=== PATIENT | male | born 1985 | race Caucasian/White ===

== ENCOUNTER 2021-03-17 08:22 | Emergency (ER) | payer OTHER ==
[2021-03-17] MEDS ORDERED: IBUPROFEN 600 MG TABLET (FP) PO ONE ×2 (08:38→08:42)
[2021-03-17 08:39] VITALS: BP 115/73; PULSE 96; TEMP 98; BMI 31.0
== END 2021-03-17 08:53 | disposition home or self-care (01) ==
LOC: FER 08:22
DX: M25.561 Pain in right knee (principal); M25.562 Pain in left knee; Y93.02 Activity, running
CPT/HCPCS: 99283-25

== ENCOUNTER 2021-05-07 01:26 | Emergency (ER) | payer BC, OTHER ==
[2021-05-07 02:00] VITALS: BP 145/88; PULSE 87; TEMP 99.4; BMI 30.5
[2021-05-07 02:34] LABS: EOS % 3.3 % (0-4.5); HEMOGLOBIN 15.4 GM/dL (11.7-16.9); LYMPH % 37.3 % (8-40); MCH 29.8 pg (25.7-33.7); MCHC 35.1 g/dl (32.0-35.9); MEAN PLT VOLUME 10.7 fl (7.5-11.1); MONO % 9.4 % (3.8-10.2); PLATELET COUNT 166 10^3/uL (134-434); RBC 5.18 M/mm3 (4.00-5.60); RDW 12.5 % (11.9-15.9); WHITE BLOOD COUNT 5.2 K/mm3 (4.0-10.0)
[2021-05-07 02:52] LABS: CHLORIDE 104 mmol/L (98-107); SODIUM 138 mmol/L (136-145)
[2021-05-07 02:54] LABS: CALCIUM 8.5 mg/dL (8.5-10.1)
[2021-05-07 02:55] LABS: ALBUMIN 3.7 g/dl (3.4-5.0); ANION GAP 8 MMOL/L (8-16); BLOOD UREA NITROGEN 10.5 mg/dL (7-18); CO2 25 mmol/L (21-32); GLUCOSE,RANDOM 134 mg/dL (74-106)
[2021-05-07 02:58] LABS: CREATININE 0.9 mg/dL (0.55-1.3); SGOT/AST 19 U/L (15-37); SGPT/ALT 54 U/L (13-61)
[2021-05-07 03:00] LABS: BILIRUBIN,TOTAL 0.8 mg/dL (0.2-1); TOT PROT 7.9 g/dl (6.4-8.2)
[2021-05-07 03:01] LABS: ALK PHOS 103 U/L (45-117)
[2021-05-07] MEDS ORDERED: POTASSIUM CHLORIDE TABS 20 MEQ TABLET.ER (FP) PO ONE ×2 (03:17→03:22)
== END 2021-05-07 04:24 | disposition home or self-care (01) ==
LOC: JER 01:26
DX: U07.1 COVID-19 (principal); R06.02 Shortness of breath
CPT/HCPCS: 36415; 71046-TC-FY; 80053; 82550; 84484; 85025; 85379; 93005; 93010; 99285-25

== ENCOUNTER 2022-03-27 18:49 | Emergency (ER) | payer OTHER ==
[2022-03-27 19:08] VITALS: BP 132/92; PULSE 95; RESP 20; TEMP 98; BMI 30.5
== END 2022-03-27 19:45 | disposition home or self-care (01) ==
LOC: FER 18:49
DX: Z77.29 Contact with and (suspected) exposure to other hazardous substances (principal)
CPT/HCPCS: 99281-25

== ENCOUNTER 2022-11-27 08:25 | Emergency (ER) | payer OTHER, BC ==
[2022-11-27 08:40] VITALS: BP 135/81; PULSE 93; RESP 18; TEMP 98.5
[2022-11-27 08:45] VITALS: BMI 31.1
== END 2022-11-27 09:59 | disposition home or self-care (01) ==
LOC: FER 08:25
DX: T59.811A Toxic effect of smoke, accidental (unintentional), initial encounter (principal); X08.8XXA Exposure to other specified smoke, fire and flames, initial encounter; Y35.91XA Legal intervention, means unspecified, law enforcement official injured, initial encounter
CPT/HCPCS: 99282-25

== ENCOUNTER 2023-04-09 00:53 | Emergency (ER) | payer OTHER, BC ==
[2023-04-09 01:06] VITALS: BP 135/94; PULSE 103; RESP 18; TEMP 98.2; BMI 31.1
== END 2023-04-09 02:16 | disposition home or self-care (01) ==
LOC: FER 00:53
DX: S61.211A Laceration without foreign body of left index finger without damage to nail, initial encounter (principal); S63.92XA Sprain of unspecified part of left wrist and hand, initial encounter; V43.52XA Car driver injured in collision with other type car in traffic accident, initial encounter
CPT/HCPCS: 73130-TC-LT-FY; 99283-25

== ENCOUNTER 2024-01-25 03:51 | Emergency (ER) | payer OTHER ==
[2024-01-25 03:58] VITALS: BP 137/92; PULSE 93; RESP 18; TEMP 97.7; BMI 31.9
== END 2024-01-25 04:08 | disposition home or self-care (01) ==
LOC: FER 03:51
DX: M25.561 Pain in right knee (principal); M25.562 Pain in left knee
CPT/HCPCS: 99282-25

== ENCOUNTER 2024-03-02 04:22 | Emergency (ER) | payer OTHER ==
[2024-03-02] MEDS ORDERED: IBUPROFEN 600 MG TABLET (FP) PO ONE (04:26)
[2024-03-02] MEDS: IBUPROFEN 600 MG TABLET (FP) PO ONE (04:27)
== END 2024-03-02 04:48 | disposition home or self-care (01) ==
LOC: FER 04:22
DX: S80.12XA Contusion of left lower leg, initial encounter (principal); Y35.811A Legal intervention involving manhandling, law enforcement official injured, initial encounter; X58.XXXA Exposure to other specified factors, initial encounter; Y93.39 Activity, other involving climbing, rappelling and jumping off
CPT/HCPCS: 99283-25

== ENCOUNTER 2024-03-05 21:52 | Emergency (ER) | payer OTHER ==
[2024-03-05 21:57] VITALS: BP 126/84; PULSE 102; TEMP 98.5; BMI 31.8
== END 2024-03-05 22:22 | disposition home or self-care (01) ==
LOC: FER 21:52
DX: L03.116 Cellulitis of left lower limb (principal)
CPT/HCPCS: 99283-25

== ENCOUNTER 2024-06-16 06:18 | Emergency (ER) | payer OTHER ==
[2024-06-16 06:41] VITALS: BP 118/76; PULSE 92; RESP 20; TEMP 98.6; BMI 31.9
== END 2024-06-16 09:47 | disposition home or self-care (01) ==
LOC: FER 06:18
DX: R07.89 Other chest pain (principal); R05.9 Cough, unspecified; T59.3X3A Toxic effect of lacrimogenic gas, assault, initial encounter; Y35.811A Legal intervention involving manhandling, law enforcement official injured, initial encounter
CPT/HCPCS: 71045-TC-FY; 99283-25

== ENCOUNTER 2024-06-17 22:49 | Emergency (ER) | payer OTHER ==
[2024-06-17 22:53] VITALS: BP 129/87; PULSE 77; RESP 18; TEMP 98.2; BMI 31.9
[2024-06-17] MEDS ORDERED: IBUPROFEN 600 MG TABLET (FP) PO ONE (23:11)
[2024-06-17] MEDS: IBUPROFEN 600 MG TABLET (FP) PO ONE (23:13)
== END 2024-06-17 23:15 | disposition home or self-care (01) ==
LOC: FER 22:49
DX: R07.89 Other chest pain (principal)
CPT/HCPCS: 93005; 99284-25

== ENCOUNTER 2024-09-29 02:20 | Emergency (ER) | payer OTHER ==
[2024-09-29 02:23] VITALS: BP 143/81; PULSE 88; RESP 18; TEMP 98.4; BMI 30.5
[2024-09-29] MEDS ORDERED: IBUPROFEN 400 MG TABLET (FP) PO ONE (03:25)
[2024-09-29] MEDS: IBUPROFEN 400 MG TABLET (FP) PO ONE (03:28)
== END 2024-09-29 03:42 | disposition home or self-care (01) ==
LOC: JER 02:20
DX: S93.402A Sprain of unspecified ligament of left ankle, initial encounter (principal); M25.472 Effusion, left ankle; X50.1XXA Overexertion from prolonged static or awkward postures, initial encounter
CPT/HCPCS: 73610-TC-LT-FY; 73630-TC-LT; 99283-25